=== PATIENT | female | born 2000 | race Caucasian/White ===

== ENCOUNTER 2018-04-02 09:15 | Emergency (ER) | payer OTHER ==
[~2018-04-02] VITALS: Ht 152.4 cm; Wt 42.2 kg
== END 2018-04-02 15:19 | disposition home or self-care (01) ==
LOC: ER 09:15
DX: O26.891 Other specified pregnancy related conditions, first trimester (principal); K52.9 Noninfective gastroenteritis and colitis, unspecified; Z34.81 Encounter for supervision of other normal pregnancy, first trimester

== ENCOUNTER 2018-09-10 12:51 | Inpatient (IN) | payer OTHER ==
[~2018-09-10] VITALS: Ht 149.9 cm; Wt 56.7 kg
[2018-10-06] MEDS ORDERED: PRENATABS RX T1 EACH PO (17:07)
== END 2018-10-09 14:29 | disposition home or self-care (01) | DRG 807 ==
LOC: OB/GYN 12:51 → LDR 10-07 01:18 → OB/GYN 10-07 01:18
PROVIDERS: ADMIT Obstetrics & Gynecology
PROC: 10E0XZZ Delivery of Products of Conception, External Approach (ICD-10-PCS; principal; 2018-10-07)
PROC: 4A0HXCZ Measurement of Products of Conception, Cardiac Rate, External Approach (ICD-10-PCS; 2018-10-07)
PROC: 4A033R1 Measurement of Arterial Saturation, Peripheral, Percutaneous Approach (ICD-10-PCS; 2018-10-07)
DX: O80 Encounter for full-term uncomplicated delivery (principal); Z37.0 Single live birth; Z3A.39 39 weeks gestation of pregnancy

== ENCOUNTER 2018-10-06 16:55 | Outpatient (CLI) | payer OTHER ==
[2018-10-06] MEDS ORDERED: PRENATABS RX T1 EACH PO (17:07)
== END 2018-10-07 01:17 | disposition still patient (30) ==
LOC: OBS/DEL 16:55
DX: O47.1 False labor at or after 37 completed weeks of gestation (principal); Z34.83 Encounter for supervision of other normal pregnancy, third trimester

== ENCOUNTER → 2019-05-27 | Emergency (ER) | payer OTHER ==
[~2019-05-27] VITALS: Ht 149.9 cm; Wt 46.7 kg
[~2019-05-27] MED LIST: ADVIL; PEPCID40 MG PO; PRENATABS RX T1 EACH PO; ZOFRAN4 MG PO
== END | disposition home or self-care (01) ==
LOC: ER 19:06
DX: K29.60 Other gastritis without bleeding (principal)

== ENCOUNTER 2020-10-15 20:47 | Emergency (ER) | payer OTHER ==
[~2020-10-15] VITALS: Ht 167.6 cm; Wt 52.2 kg
== END 2020-10-16 02:48 | disposition home or self-care (01) ==
LOC: ER 20:47
DX: O21.0 Mild hyperemesis gravidarum (principal); Z34.01 Encounter for supervision of normal first pregnancy, first trimester

== ENCOUNTER 2020-10-17 11:58 | Emergency (ER) | payer OTHER ==
[~2020-10-17] VITALS: Ht 149.9 cm; Wt 43.5 kg
== END 2020-10-17 15:56 | disposition home or self-care (01) ==
LOC: ER 11:58
DX: O21.8 Other vomiting complicating pregnancy (principal); Z03.818 Encounter for observation for suspected exposure to other biological agents ruled out; Z34.01 Encounter for supervision of normal first pregnancy, first trimester

== ENCOUNTER 2020-10-18 11:28 | Emergency (ER) | payer OTHER ==
[~2020-10-18] VITALS: Ht 149.9 cm; Wt 43.5 kg
== END 2020-10-18 16:23 | disposition home or self-care (01) ==
LOC: ER 11:28
DX: O21.8 Other vomiting complicating pregnancy (principal); Z34.01 Encounter for supervision of normal first pregnancy, first trimester

== ENCOUNTER 2020-11-15 12:19 | Inpatient (IN) | payer OTHER ==
[~2020-11-15] VITALS: Ht 149.9 cm; Wt 42.6 kg
[2020-11-15] MEDS ORDERED: ZUPLENZ4 MG (12:27)
== END 2020-11-18 12:37 | disposition home or self-care (01) | DRG 742 ==
LOC: ER 12:19 → OB/GYN 13:45 → SEC-K 13:45 → OB/GYN 20:00
PROVIDERS: ADMIT Obstetrics & Gynecology; ATTEND Obstetrics & Gynecology
PROC: BY49ZZZ Ultrasonography of First Trimester, Single Fetus (ICD-10-PCS; 2020-11-15)
PROC: 0UB00ZZ Excision of Right Ovary, Open Approach (ICD-10-PCS; principal; 2020-11-15 17:15)
DX: D27.0 Benign neoplasm of right ovary (principal); N83.511 Torsion of right ovary and ovarian pedicle; N83.01 Follicular cyst of right ovary; Z33.1 Pregnant state, incidental

== ENCOUNTER 2021-06-03 14:16 | Inpatient (IN) | payer OTHER ==
[~2021-06-03] VITALS: Ht 149.9 cm; Wt 63.0 kg
[~2021-06-03 14:16] MED LIST changes: +ZUPLENZ4 MG
== END 2021-06-05 13:54 | disposition home or self-care (01) | DRG 807 ==
LOC: OB/GYN 14:16 → LDR 14:16 → OB/GYN 06-04 08:13
PROVIDERS: ADMIT Obstetrics & Gynecology; ATTEND Obstetrics & Gynecology
PROC: 10E0XZZ Delivery of Products of Conception, External Approach (ICD-10-PCS; principal; 2021-06-03)
PROC: 10907ZC Drainage of Amniotic Fluid, Therapeutic from Products of Conception, Via Natural or Artificial Opening (ICD-10-PCS; 2021-06-03)
PROC: 3E033VJ Introduction of Other Hormone into Peripheral Vein, Percutaneous Approach (ICD-10-PCS; 2021-06-03)
PROC: 4A1HXFZ Monitoring of Products of Conception, Cardiac Rhythm, External Approach (ICD-10-PCS; 2021-06-03)
DX: O99.824 Streptococcus B carrier state complicating childbirth (principal); Z37.0 Single live birth; Z3A.38 38 weeks gestation of pregnancy

== ENCOUNTER 2022-09-10 06:50 | Inpatient (IN) | payer OTHER ==
[~2022-09-10] VITALS: Ht 124.5 cm; Wt 42.6 kg
--- NOTE | 2022-09-10 07:26 | NUR ---
SE RECIBE PTE ALERTA Y ORIENTADA X LA CUAL REFIERE TENER DOLOR ABDOMINAL Y VOMITOS DESDE LA MADRUGADA. PTE REFIERE ESTAR EMBARAZADA [address] CONTI
--- NOTE | 2022-09-10 08:48 | NUR ---
PTE EVALUADA POR LA DRA [place] QUI[place]. MR R JACINTO ORIENTA SOBRE EL [place] ORDENADO, LO CUAL REFIERE ENTENDER, REALIZA PRUEBAS DE LABORATORIO Y ADMINISTRA MEDICAMENTOS SETH ORDEN MEDICA Y SIGUIENDO MEDIDAS ASEPTICAS.
== END 2022-09-12 11:07 | disposition home or self-care (01) | DRG 833 ==
LOC: ER 06:50 → OB/GYN 13:36
PROVIDERS: ADMIT Obstetrics & Gynecology; ATTEND Obstetrics & Gynecology
PROC: 4A1HXCZ Monitoring of Products of Conception, Cardiac Rate, External Approach (ICD-10-PCS; principal; 2022-09-10)
PROC: BW40ZZZ Ultrasonography of Abdomen (ICD-10-PCS; 2022-09-10)
DX: O21.0 Mild hyperemesis gravidarum (principal); O26.891 Other specified pregnancy related conditions, first trimester; K29.70 Gastritis, unspecified, without bleeding; Z3A.09 9 weeks gestation of pregnancy; Z20.822 Contact with and (suspected) exposure to COVID-19

== ENCOUNTER 2022-09-27 11:23 | Day surgery (SDC) | payer OTHER ==
[~2022-09-27] VITALS: Ht 180.3 cm; Wt 42.2 kg
== END 2022-09-27 18:48 | disposition home or self-care (01) ==
LOC: SEC-K 11:23 → ER 11:23 → CIR.AMB 11:23 → EDSTATUS 13:00 → O/R 15:11 → SEC-K 15:11 → O/R 18:20 → CIR.AMB 18:48
PROVIDERS: ATTEND Obstetrics & Gynecology
DX: O03.4 Incomplete spontaneous abortion without complication (principal); O03.1 Delayed or excessive hemorrhage following incomplete spontaneous abortion; O72.2 Delayed and secondary postpartum hemorrhage; Z3A.13 13 weeks gestation of pregnancy

== ENCOUNTER 2023-03-26 11:39 | Emergency (ER) | payer OTHER ==
[~2023-03-26] VITALS: Ht 149.9 cm; Wt 44.5 kg
== END 2023-03-26 14:27 | disposition home or self-care (01) ==
LOC: ER 11:39
DX: K29.70 Gastritis, unspecified, without bleeding (principal); R10.9 Unspecified abdominal pain

== ENCOUNTER 2023-05-05 08:44 | Emergency (ER) | payer OTHER ==
[~2023-05-05] VITALS: Ht 149.9 cm; Wt 43.1 kg
== END 2023-05-05 16:53 | disposition home or self-care (01) ==
LOC: ER 08:44
PROVIDERS: Emergency Medicine
DX: B34.9 Viral infection, unspecified (principal); J10.1 Influenza due to other identified influenza virus with other respiratory manifestations; Z20.822 Contact with and (suspected) exposure to COVID-19